=== PATIENT | male | born 1955 | race Caucasian/White ===

== ENCOUNTER 2017-05-15 13:28 | Inpatient (IN) | payer BC ==
[~2017-05-15] VITALS: Ht 170.2 cm; Wt 67.0 kg
[~2017-05-15 13:28] MED LIST: ADULT LOW DOSE81 M1 PO; Apresoline IV; Chloraseptic Spray C MM; DIOVAN320 MG PO; Daily TPN Order IV; GLUCOTROL XL10 MG PO; Heparin Sodium SC; LIPITOR10 MG PO; Lopressor IV; METFORMIN HCL1000 M1 PO; METOCLOPRAMIDE10 MG PO; NEXIUM40 MG PO; PROSCAR5 MG PO; PROTONIX40 MG PO; Protonix IV; Toradol IV; Zofran IV
[2017-05-15 14:35] LABS: HEMATOCRIT 44.5 % (38.0-50.0); MCHC 34.8 G/DL (30.0-36.0); MCV 86.2 FL (86-99); PLATELET COUNT 130 K/uL (156-360); RBC DIS.WIDTH-CV 12.7 % (11.8-14.6); RBC DIS.WIDTH-SD 39.3 % (39-53); RED BLOOD COUNT 5.16 M/uL (4.00-5.50); WHITE BLOOD COUNT 8.1 K/uL (4.1-10.2)
[2017-05-15 15:05] LABS: ANION GAP 9 MEQ/L (2-14); CHLORIDE 99 MEQ/L (99-109); POTASSIUM 4.4 MEQ/L (3.7-5.4); SAMPLE HEMOLYSIS CHECK 0; SAMPLE ICTERIC CHECK 1; SAMPLE LIPEMIA CHECK 0; SODIUM 137 MEQ/L (136-147); TOTAL BILIRUBIN 5.7 MG/DL (0.0-1.0)
[2017-05-15 15:11] LABS: ALKALINE PHOSPHATASE 343 IU/L (3-129); GFR ESTIMATE (CALCULATED) > 59 mL/min/ (58.99-99999); GLUCOSE 204 mg/dL (70-99); UREA NITROGEN (BUN) 14 mg/dL (9-23)
[2017-05-15 17:51] LABS: DIRECT BILIRUBIN 3.4 mg/dL (0.0-0.3)
[2017-05-15 17:58] LABS: LIPASE < 3 U/L (1.0-51.0)
[2017-05-15] MEDS ORDERED: MULTIVITAMIN1 EAC2 PO (18:01)
[2017-05-16 01:19] VITALS: BP 105/60
== END 2017-05-15 21:32 | disposition short-term general hospital (02) | DRG 446 ==
LOC: EME 13:28 → EDOF 18:36 → ENRESERV 18:38 → CANRESERV 20:21 → EDOF 21:32
DX: K80.42 Calculus of bile duct with acute cholecystitis without obstruction (principal); K21.9 Gastro-esophageal reflux disease without esophagitis; I10 Essential (primary) hypertension; E11.9 Type 2 diabetes mellitus without complications; Z92.3 Personal history of irradiation; Z92.21 Personal history of antineoplastic chemotherapy; Z85.028 Personal history of other malignant neoplasm of stomach
CPT/HCPCS: 74177; 80053; 81003; 82248; 83690; 85027; J1885; J2270; J2405; J2543; J7030